=== PATIENT | male | born 1970 | race African-American/Black ===

== ENCOUNTER 2017-08-25 09:58 | Emergency (ER) | payer SELFPAY ==
[~2017-08-25] VITALS: Ht 175.3 cm; Wt 86.0 kg
[2017-08-25 10:06] VITALS: BP 154/71; PULSE 81; RESP 18; TEMP 98.5; O2SAT 97
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
== END 2017-08-25 13:30 | disposition home or self-care (01) ==
LOC: NEPK 09:58
DX: S02.40FA Zygomatic fracture, left side, initial encounter for closed fracture (principal); T14.8XXA Other injury of unspecified body region, initial encounter; Y04.0XXA Assault by unarmed brawl or fight, initial encounter
CPT/HCPCS: 70486; 72100; 73080; 73564; 99284

== ENCOUNTER 2017-11-11 05:24 | Emergency (ER) | payer OTHER ==
[2017-11-11 05:37] VITALS: BP 128/76; PULSE 82; RESP 16; TEMP 98.2; O2SAT 96
[2017-11-11] MEDS ORDERED: AUGM875T3 PO (05:40)
[2017-11-11] MEDS ORDERED: HYDR25TA5 PO (05:41)
[2017-11-11] MEDS ORDERED: LISI40TA PO (05:41)
[2017-11-11] MEDS ORDERED: AMOXICILLIN/CLAVULANATE K 875 MG TAB PO ONE (05:45)
[2017-11-11] MEDS ORDERED: TETANUS/DIPHTHERIA TOXOID ADULT 0.5 ML VIAL IM ONE (05:45)
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
== END 2017-11-11 06:41 ==
LOC: NEPD 05:24
DX: S21.159A Open bite of unspecified front wall of thorax without penetration into thoracic cavity, initial encounter (principal); S71.052A Open bite, left hip, initial encounter; W54.0XXA Bitten by dog, initial encounter; Y35.893A Legal intervention involving other specified means, suspect injured, initial encounter; Z23 Encounter for immunization
CPT/HCPCS: 90471; 90714